=== PATIENT | female | born 1965 | race Caucasian/White ===

== ENCOUNTER 2017-11-26 06:44 | Emergency (ER) | payer BC ==
[~2017-11-26] VITALS: Ht 152.4 cm; Wt 105.0 kg
[2017-11-26 07:49] LABS: ALANINE AMINOTRANSFERASE 38 U/L (12-78); ALBUMIN 3.6 G/DL (3.4-5.0); ALBUMIN/GLOBULIN RATIO 0.9 (1.1-1.5); ALKALINE PHOSPHATASE 79 IU/L (46-116); ANION GAP 10 (8-16); ASPARTATE AMINO TRANSFERASE 14 U/L (10-37); BILIRUBIN,TOTAL 0.4 MG/DL (0.1-1.0); BLOOD UREA NITROGEN 20 MG/DL (7-18); BUN/CREATININE RATIO 19.6 (6.6-38.0); CALCIUM 9.2 MG/DL (8.5-10.1); CHLORIDE 105 MMOL/L (99-107); CREATININE 1.02 MG/DL (0.40-0.90); GLUCOSE 123 MG/DL (70-104); LIPASE 170 U/L (73-393); SODIUM 141 MMOL/L (135-145); TOTAL CARBON DIOXIDE 25.9 MMOL/L (24-32); TOTAL PROTEIN 7.6 G/DL (6.4-8.2); eGFR 57 ML/MIN
[2017-11-26 07:50] LABS: CLARITY,URINE CLEAR (Clear); COLOR,URINE ORANGE (Yellow)
[2017-11-26 07:52] LABS: BASOPHILS # (AUTO) 0.1 X10'3 (0-0.2); BASOPHILS % (AUTO) 1.2 % (0-1); EOSINOPHILS # (AUTO) 0.2 X10'3 (0-0.9); EOSINOPHILS % (AUTO) 3.1 % (0-6); HEMATOCRIT 39.6 % (35.0-45.0); HEMOGLOBIN 13.4 g/dl (12.0-16.0); LYMPHOCYTES # (AUTO) 1.4 X10'3 (1.1-4.8); LYMPHOCYTES % (AUTO) 18.9 % (21-51); MEAN CORPUSCULAR HEMOGLOBIN 31.6 PG (27.0-31.0); MEAN CORPUSCULAR VOLUME 93.2 FL (78-98); MEAN PLATELET VOLUME 7.6 FL (7.4-10.4); MONOCYTES # (AUTO) 0.4 X10'3 (0-0.9); MONOCYTES % (AUTO) 5.9 % (2-12); NEUTROPHILS # (AUTO) 5.1 X10'3 (1.8-7.7); NEUTROPHILS % (AUTO) 70.9 % (42-75); PLATELET COUNT 411 X10'3 (140-440); RED BLOOD COUNT 4.25 X10'6 (4.20-5.60); RED CELL DISTRIBUTION WIDTH 13.7 % (11.5-14.5); WHITE BLOOD COUNT 7.2 X10'3 (4.5-11.0)
[2017-11-26 08:07] LABS: UA COLLECTION TYPE CLN CATCH MIDSTREAM
[2017-11-26 08:13] LABS: MUCUS STRANDS MANY /LPF (Neg); SQUAMOUS EPITHELIAL CELL,UR MANY /LPF (FEW)
[2017-11-26] MEDS: ondansetron/PF 4mg/2ml inj IV ONE (08:13)
[2017-11-26] MEDS: morphine 4 MG/ML inj SYRINge ONE (08:13)
[2017-11-26] MEDS: MORPHINE 2MG in 2ml NS syringe IV PRN (08:13)
[2017-11-26 08:16] LABS: BACTERIA,URINE 4+ /HPF (Neg); RBC,URINE 20-30 /HPF (0-2)
[2017-11-26] MEDS ORDERED: FLO0.4C PO (08:57)
[2017-11-26] MEDS ORDERED: PER5325T PO (08:58)
[2017-11-26] MEDS ORDERED: IBUP-1984 PO (08:58)
[2017-11-26] MEDS: tamsulosin 0.4mg capsule PO STA (09:14)
[2017-11-26] MEDS: ketorolac trometh. 30mg/ml inj. IV ONE (09:14)
[2017-11-26] MEDS: morphine 4 MG/ML inj SYRINge IV ONE (11:37)
[2017-11-26] MEDS: oxyCODONE/APAP 10/325mg tablet PO ONE (11:38)
[2017-11-26 12:55] VITALS: BP 124/84
== END 2017-11-26 13:09 | disposition home or self-care (01) ==
LOC: ER 06:45
DX: N13.2 Hydronephrosis with renal and ureteral calculous obstruction (principal); E78.00 Pure hypercholesterolemia, unspecified; Z90.49 Acquired absence of other specified parts of digestive tract; Z88.0 Allergy status to penicillin
CPT/HCPCS: 36415; 74176; 80053; 81001; 83690; 85025; 96374; 96375; 96376; 99285; J1885; J2270; J2405; J7030

== ENCOUNTER 2018-11-03 12:38 | Emergency (ER) | payer BC ==
[~2018-11-03] VITALS: Ht 153.7 cm; Wt 100.0 kg
[2018-11-03 12:43] VITALS: BP 175/84
[2018-11-03] MEDS ORDERED: normal saline 1000ML IV soln IVB ONE ×3 (12:55→13:55)
[2018-11-03] MEDS ORDERED: ondansetron/PF 4mg/2ml inj IV ONE (12:55)
[2018-11-03] MEDS ORDERED: ketorolac trometh. 30mg/ml inj. IV ONE (13:00)
[2018-11-03 13:18] LABS: BASOPHILS # (AUTO) 0.1 X10'3 (0-0.2); BASOPHILS % (AUTO) 0.6 % (0-1); EOSINOPHILS # (AUTO) 0.1 X10'3 (0-0.9); EOSINOPHILS % (AUTO) 1.5 % (0-6); HEMATOCRIT 43.1 % (35.0-45.0); HEMOGLOBIN 14.3 g/dl (12.0-16.0); LYMPHOCYTES % (AUTO) 9.7 % (21-51); MEAN CORPUSCULAR HEMOGLOBIN 31.3 PG (27.0-31.0); MEAN CORPUSCULAR HGB CONC 33.3 g/dL (33.0-36.5); MEAN CORPUSCULAR VOLUME 94.1 FL (78-98); MEAN PLATELET VOLUME 7.5 FL (7.4-10.4); MONOCYTES # (AUTO) 0.4 X10'3 (0-0.9); MONOCYTES % (AUTO) 3.8 % (2-12); NEUTROPHILS # (AUTO) 8.3 X10'3 (1.8-7.7); NEUTROPHILS % (AUTO) 84.4 % (42-75); PLATELET COUNT 269 X10'3 (140-440); RED BLOOD COUNT 4.58 X10'6 (4.20-5.60); RED CELL DISTRIBUTION WIDTH 13.9 % (11.5-14.5); WHITE BLOOD COUNT 9.9 X10'3 (4.5-11.0)
[2018-11-03 13:24] LABS: CLARITY,URINE CLOUDY (Clear); COLOR,URINE YELLOW (Yellow); GLUCOSE, URINE NEGATIVE (Neg); KETONES,URINE NEGATIVE (Neg); LEUKOCYTE ESTERASE ,URINE NEGATIVE (Neg); NITRITES, URINE NEGATIVE (Neg); OCCULT BLOOD,URINE LARGE (Neg); PH,URINE 5.5 (4.8-8.0); PROTEIN,URINE 30 mg/dl (Neg); UROBILINOGEN,URINE 0.2 E.U/dL (0.2-1.0)
[2018-11-03 13:31] LABS: ALANINE AMINOTRANSFERASE 46 U/L (12-78); ALBUMIN 3.7 G/DL (3.4-5.0); ALBUMIN/GLOBULIN RATIO 0.9 (1.1-1.5); ALKALINE PHOSPHATASE 79 IU/L (46-116); ANION GAP 11 (8-16); ASPARTATE AMINO TRANSFERASE 24 U/L (10-37); BILIRUBIN,TOTAL 0.4 MG/DL (0.1-1.0); BLOOD UREA NITROGEN 15 MG/DL (7-18); BUN/CREATININE RATIO 15.5 (6.6-38.0); CALCIUM 9.7 MG/DL (8.5-10.1); CHLORIDE 105 MMOL/L (99-107); CREATININE 0.97 MG/DL (0.40-0.90); GLUCOSE 119 MG/DL (70-104); LIPASE 112 U/L (73-393); POTASSIUM 3.9 MMOL/L (3.5-5.1); SODIUM 142 MMOL/L (135-145); TOTAL PROTEIN 7.7 G/DL (6.4-8.2); eGFR 61 ML/MIN
[2018-11-03 13:34] LABS: UA COLLECTION TYPE CLN CATCH MIDSTREAM
[2018-11-03] MEDS: morphine 4 MG/ML inj SYRINge IV PRN ×2 (13:34→15:10)
[2018-11-03 13:36] LABS: URINE HCG NEGATIVE (NEG)
[2018-11-03 13:38] LABS: SQUAMOUS EPITHELIAL CELL,UR MANY /LPF (FEW)
[2018-11-03 13:39] LABS: MUCUS STRANDS FEW /LPF (Neg)
[2018-11-03 13:40] LABS: BACTERIA,URINE 1+ /HPF (Neg)
[2018-11-03 13:42] LABS: WBC,URINE 0-4 /HPF (0-4)
[2018-11-03 13:48] LABS: RBC,URINE TNTC /HPF (0-2)
[2018-11-03 13:50] LABS: HYALINE CASTS 0-3 /LPF (NEGATIVE)
[2018-11-03] MEDS ORDERED: HYDR-4353 PO (13:58)
[2018-11-03] MEDS ORDERED: ONDA4TAB12 PO (13:58)
== END 2018-11-03 16:33 | disposition home or self-care (01) ==
LOC: ER 12:39
DX: E86.0 Dehydration (principal); N20.0 Calculus of kidney; E78.00 Pure hypercholesterolemia, unspecified; Z90.49 Acquired absence of other specified parts of digestive tract; Z88.5 Allergy status to narcotic agent; Z88.0 Allergy status to penicillin
CPT/HCPCS: 36415; 80053; 81001; 81025; 83690; 85025; 96374; 96375; 96376; 99283; J1885; J2270; J2405; J7030